=== PATIENT | male | born 1945 | race Caucasian/White ===

== ENCOUNTER → 2019-11-21 | Outpatient (CLI) | payer MEDICARE ==
[~2019-11-21] MED LIST: AMLO5TAB9 PO; ATOR40TA71 PO; CITA10TA7 PO; LOSA50TA64 PO
== END | disposition home or self-care (01) ==
LOC: OIH 08:50
PROVIDERS: ATTEND Neurological Surgery
DX: M47.812 Spondylosis without myelopathy or radiculopathy, cervical region (principal); M43.22 Fusion of spine, cervical region
CPT/HCPCS: 72040

== ENCOUNTER → 2020-05-08 | Outpatient (CLI) | payer MEDICARE | END | disposition home or self-care (01) | LOC: RAH 10:26 | PROVIDERS: ATTEND Internal Medicine | DX: S12.100S Unspecified displaced fracture of second cervical vertebra, sequela (principal); M47.812 Spondylosis without myelopathy or radiculopathy, cervical region; M25.78 Osteophyte, vertebrae; X58.XXXS Exposure to other specified factors, sequela | CPT/HCPCS: 72040 ==